=== PATIENT | female | born 1960 | race Caucasian/White ===

== ENCOUNTER 2023-10-29 16:57 | Emergency (ER) | payer OTHER, SELFPAY ==
[2023-10-29 16:59] VITALS: BP 128/97
[2023-10-29 17:08] LABS: Glucose - Point of Care 175 mg/dl (70-99)
[2023-10-29 17:32] LABS: % Basophils 0.6 % (0-2); % Eosinophils 0.3 % (0-6); % Immature Granulocytes 0.3 % (0-0.5); % Lymphocytes 7.2 % (20.5-51.1); % Monocytes 9.2 % (1.7-9.3); % Neutrophils 82.4 % (42.2-75.2); Absolute Basophils 0.1 10^3/uL (0-0.2); Absolute Lymphocytes 0.6 10^3/uL (1.2-3.4); Absolute Monocytes 0.7 10^3/uL (0.1-0.6); Absolute Neutrophils 6.6 10^3/uL (1.4-6.5); Hematocrit 40.7 % (37.0-47.0); Hemoglobin 14.1 g/dL (12.0-16.0); Mean Corp Hgb Conc. 34.6 g/dL (33.0-37.0); Mean Corpuscular Volume 83.7 fL (81.0-99.0); Mean Platelet Volume 11.4 fL (7.4-10.4); Nucleated Red Blood Cells % 0 %; Platelet Count 193 10^3/uL (130-400); Red Blood Cell Count 4.86 10^6/uL (4.20-5.40); Red Cell Dist. Width 13.3 % (11.5-14.5)
[2023-10-29 17:39] LABS: ALT (SGPT) 26 U/L (0-35); AST (SGOT) 27 U/L (14-36); Albumin 4.6 g/dl (3.5-5.0); Alkaline Phosphatase 72 U/L (38-126); Blood Urea Nitrogen 16 mg/dl (7-17); Calcium 9.7 mg/dl (8.4-10.2); Carbon Dioxide 25 mmol/L (22-30); Chloride 103 mmol/L (98-107); Glucose 185 mg/dl (70-99); Potassium 3.8 mmol/L (3.5-5.1); Sodium 136 mmol/L (135-145); Total Bilirubin 1.9 mg/dl (0.2-1.3); eGFR > 60.00
[2023-10-29] MEDS: TORADOL 30 MG IV (18:20)
[2023-10-29] MEDS: NSS 1000 IV (18:24)
[2023-10-29] MEDS: ZOFRAN 4 MG IV (18:24)
--- NOTE | 2023-10-29 18:30 | ED.GENMED ---
History of Present Illness
General
Chief Complaint: Cold/Flu/URI Symptoms
Source: patient
Time Seen by Provider: 10/29/23 17:47
History of Present Illness
History of Present Illness:
63-year-old female with past medical history of hypertension, hyperlipidemia and diabetes presenting to the emergency department for evaluation after she tested positive for COVID earlier today, symptoms starting yesterday for evaluation of
persistent nausea, vomiting and diminished p.o. intake. Patient was concern for dehydration prompting her to come to the ER for further. Patient endorses fevers body aches, sinus congestion in addition to the aforementioned symptoms. Attempted to
take some Tylenol earlier but states vomited shortly after.
Past History
Past History
ED Past Medical History: HTN, Hypercholesterolemia and NIDDM
ED Past Surgical History: and Orthopedic
Social History
Tobacco: Non-smoker
Alcohol: None
Drug: None
Living: alone
Review of Systems
Review of Systems
All Other Systems: ROS reviewed and negative except as documented in HPI and ROS
Phy Exam
Physical Exam
Physical Exam:
GENERAL: Alert , in no apparent distress
EYE: conjunctiva clear
Head: Normocephalic atraumatic
NECK: Supple,
ENT: mmm.
LUNGS: no acute respiratory distress
NEUROLOGICAL: Alert and oriented
SKIN: Warm and dry, skin intact.
MUSCULOSKELETAL: well perfused.
PSYCH: Normal and appropriate interaction.
Scores
Heart Failure Risk
Heart Failure Risk Score: Not Applicable
Heart Score for Chest Pain Patients
STEMI patient?: Not applicable
Withdrawal Assessment of Alcohol
Withdrawal Assessment Completed?: Not applicable
Course
Orders/Labs/Results
Orders:
Orders
10/29/23 17:14
Complete Blood Count/With Diff Urgent
Comprehensive Metabolic Panel Urgent
10/29/23 17:57
0.9% Sodium Chloride 1000 ml [Nss] 1,000 ml IV BOLUS
Ketorolac [Toradol] 30 mg IV NOW STA
Ondansetron Injectable [Zofran] 4 mg IV NOW STA
10/29/23 19:43
Lorazepam [Ativan] 2 mg .ROUTE .STK-MED ONE
Ondansetron Orally Disint [Zofran Odt (Orally Disintegrating)] 4 mg PO NOW STA
Abnormal Lab Results
10/29/23 10/29/23
17:06 17:14
MPV 11.4 H fL
(7.4-10.4)
Absolute Neuts (auto) 6.6 H 10^3/uL
(1.4-6.5)
Absolute Lymphs (auto) 0.6 L 10^3/uL
(1.2-3.4)
Absolute Monos (auto) 0.7 H 10^3/uL
(0.1-0.6)
Neutrophils % 82.4 H %
(42.2-75.2)
Lymphocytes % 7.2 L %
(20.5-51.1)
Glucose 185 H mg/dl
(70-99)
Total Bilirubin 1.9 H mg/dl
(0.2-1.3)
POC Glucose 175 H mg/dl
(70-99)
10/29/23 17:14
10/29/23 17:14
Vital Signs
Initial and Last Documented VS:
Initial Vital Signs
Temp Pulse Resp BP Pulse Ox
101.1 F H 113 20 128/97 98
10/29/23 16:59 10/29/23 16:59 10/29/23 16:59 10/29/23 16:59 10/29/23 16:59
Last Documented Vital Signs
Temp Pulse Resp BP Pulse Ox
101.1 F H 113 26 128/97 97
10/29/23 16:59 10/29/23 18:45 10/29/23 18:45 10/29/23 16:59 10/29/23 18:10
MDM/Problems Addressed
Differential Diagnosis Includes:
COVID, electrolyte derangement, mild dehydration
MDM/Problems Addressed:
63-year-old female presenting to the emergency department for evaluation after testing positive for COVID earlier today, symptoms started yesterday. Patient is noting nausea vomiting and some mild sinus congestion. She is in no acute distress.
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 Will treat with fluids, Toradol and Zofran. Reassessment following with anticipated discharge home.
*Pulse Oximetry
Patient hypoxic: no
*Critical Care Note
Total Time (30-74mins, 75-104mins- exclusive of procedures): Not Applicable
Patient Management
Escalation/DeEscalation of care consider admission/obs:
Patient with improvement of symptoms. She is able to tolerate p.o. We will send prescription for Zofran to pharmacy as well as prescription for Paxlovid. Patient is unsure as if she would like to take the Paxlovid as we discussed potential side
effects. Informed that she would need to start taking this medication by Saturday for any of the benefits of it. Advised on return precautions to the ER. Otherwise stable for discharge home.
ED Attending Note
-
Portions of this chart may have been created with voice recognition software.� Occasional wrong word or��sound alike� substitutions may have occurred due to the inherent limitations of voice recognition software.
Discharge Plan
Departure
Patient Disposition: Home (Routine Discharge)
Date of Disposition: 10/29/23
Time of Disposition: 19:41
Patient with high blood pressure during this ER visit?: No
Discharge Problem:
COVID-19, Nausea
Instructions: COVID-19 ED
Prescriptions:
New
ondansetron 4 mg tablet,disintegrating
4 mg PO TIDPRN PRN (Reason: nausea/vomiting) Qty: 10 0RF
Paxlovid 300 mg (150 mg x 2)-100 mg tablets,dose pack
See Rx Instructions .ROUTE .COMPLEX Qty: 30 0RF
Rx Instructions:
take TWO 150 mg tablets of nirmatrelvir with ONE 100 mg tablet of ritonavir twice daily for 5 days
Referrals:
NONE,* [Family Provider] -
Interventions
Interventions:
*General Assessment Last Done: 10/29/23 17:40
*Neglect/Abuse Screening Last Done: 10/29/23 17:40
ED- Fall Risk Assessment Last Done: 10/29/23 17:40
ED- Pulmonary Assessment Last Done: 10/29/23 17:40
Discharge Date and Time
Print Language: SAMI
[2023-10-29 19:00] VITALS: BP 135/79
[2023-10-29 20:00] VITALS: BP 116/67
[2023-10-29] MEDS: ZOFRAN ODT (ORALLY DISINTEGRATING) 4 MG PO (20:26)
== END 2023-10-29 20:32 | disposition home or self-care (01) ==
LOC: EMR 16:57
PROVIDERS: Student in an Organized Health Care Education/Training Program; EMERGENCY PHYSICIAN Emergency Medicine
DX: U07.1 COVID-19 (principal); R11.2 Nausea with vomiting, unspecified
CPT/HCPCS: 99284; 96374; 96375; 96361; 80053; 82962; 85025